=== PATIENT | female | born 1955 | race Caucasian/White ===

== ENCOUNTER 2017-01-20 06:51 | Day surgery (SDC) | payer OTHER ==
[~2017-01-20] VITALS: Ht 149.9 cm; Wt 55.4 kg
[2017-01-20 07:34] VITALS: Ht 149.9 cm; Wt 55.4 kg
[2017-01-20] MEDS ORDERED: VIT.D (07:55)
[2017-01-20] MEDS ORDERED: METF500T4 PO (07:55)
[2017-01-20] MEDS ORDERED: OMEP20CA16 PO (07:55)
[2017-01-20] MEDS ORDERED: FERR325C PO (07:55)
[2017-01-20] MEDS ORDERED: ALBUTEROL (07:55)
[2017-01-20] MEDS ORDERED: TRAV4OP25 BOTH EYES (07:55)
[2017-01-20] MEDS ORDERED: GLUC100015 PO (07:55)
[2017-01-20] MEDS ORDERED: PIOG15TA21 PO (07:55)
[2017-01-20] MEDS ORDERED: ALPR1TAB7 PO (07:55)
[2017-01-20] MEDS ORDERED: CITRACAL PO (07:55)
[2017-01-20] MEDS ORDERED: LIDOCAINE 100 MG SYRINGE ONE (09:23)
[2017-01-20] MEDS ORDERED: PROPOFOL 40 ML ONE (09:23)
[2017-01-20 09:45] VITALS: BP 133/63; PULSE 82; RESP 21
--- NOTE | 2017-01-20 13:21 | GILP ---
DATE OF PROCEDURE: 01/20/2017 PROCEDURE: Colonoscopy with biopsy. INDICATION: A 61-year-old female undergoing this procedure for colon cancer screening. She also co mplains of chronic diarrhea. The risk of the procedure, related and unrelated complications, anesth etic risks, alternatives discussed. Informed consent was obtained. DESCRIPTION OF PROCEDURE: The patient was brought to the GI lab, sedated by Dr. Riojas. After opti mal sedation, scope was passed with much ease into rectum, advanced through sigmoid, descending, tra nsverse colon all the way into cecum. Appendiceal orifice and IC valve identified. Rest of the col on was normal. There was a spasm near the splenic flexure with a twist. Multiple random biopsies o btained to rule out collagenous or microscopic colitis. Retroversion done which was normal. Scope was straightened out and removed with good patient tolerance. IMPRESSION: 1. Normal colon. 2. Clarity and cleanliness was good. 3. Random biopsy obtained to rule out collagenous or microscopic colitis. PLAN: The patient should stay on a high-fiber diet. Dictated By: CHERELLE PUGA/WENDY Conf#: [id number] DID#: [id number] CC: CHERELLE PARRISH MD; BETTY ;*EndCC*
== END 2017-01-20 16:53 | disposition home or self-care (01) ==
LOC: GIL 06:51
PROVIDERS: ATTEND Internal Medicine Gastroenterology
DX: Z12.11 Encounter for screening for malignant neoplasm of colon (principal); E11.9 Type 2 diabetes mellitus without complications
CPT/HCPCS: 45380; 82962; 88305; J2001; Z7610